=== PATIENT | male | born 1980 | race African-American/Black ===

== ENCOUNTER 2023-04-15 10:06 | Emergency (ER) | payer OTHER ==
[2023-04-15 10:36] VITALS: BMI 16.7
[2023-04-15 10:54] VITALS: BP 143/59; PULSE 103; RESP 18; TEMP 98
[2023-04-15] MEDS ORDERED: ACETAMINOPHEN 325 MG TABLET (FP) ONE (13:43)
[2023-04-15] MEDS: ACETAMINOPHEN 325 MG TABLET (FP) PO ONE (13:45)
[2023-04-15 14:29] LABS: BASO % 0.5 % (0-2.0); HEMATOCRIT 36.5 % (35.4-49); HEMOGLOBIN 12.5 GM/dL (11.7-16.9); LYMPH % 15.3 % (8-40); MCH 38.7 pg (25.7-33.7); MCHC 34.3 g/dl (32.0-35.9); MEAN PLT VOLUME 5.9 fl (7.5-11.1); MONO % 7.6 % (3.8-10.2); NEUT % 76.6 % (42.8-82.8); PLATELET COUNT 232 10^3/uL (134-434); RBC 3.23 M/mm3 (4.00-5.60); RDW 19.9 % (11.9-15.9); WHITE BLOOD COUNT 7.1 K/mm3 (4.0-10.0)
[2023-04-15 14:48] LABS: POTASSIUM 3.3 mmol/L (3.5-5.1)
[2023-04-15 14:50] LABS: CALCIUM 8.6 mg/dL (8.5-10.1)
[2023-04-15 14:51] LABS: ALBUMIN 4.2 g/dl (3.4-5.0); BLOOD UREA NITROGEN 5.6 mg/dL (7-18)
[2023-04-15 14:54] LABS: CREATININE 0.6 mg/dL (0.55-1.3)
[2023-04-15 14:56] LABS: BILIRUBIN,TOTAL 0.9 mg/dL (0.2-1); TOT PROT 7.2 g/dl (6.4-8.2)
[2023-04-15 15:10] LABS: ANISOCYTOSIS 1+; MACROCYTOSIS 2+
== END 2023-04-15 14:49 | disposition left against medical advice (07) ==
LOC: JER 10:06
DX: S09.90XA Unspecified injury of head, initial encounter (principal); F10.129 Alcohol abuse with intoxication, unspecified; W01.198A Fall on same level from slipping, tripping and stumbling with subsequent striking against other object, initial encounter
CPT/HCPCS: 36415; 70450-TC; 70486-TC; 72125-TC; 80053; 85025; 93005; 93010; 99285-25